=== PATIENT | male | born 1950 | race Caucasian/White ===

== ENCOUNTER → 2021-04-08 | Outpatient (CLI) | payer OTHER ==
--- NOTE | ~2021-04-08 | PF ---
[address] [address] PULMONARY FUNCTION REPORT Name: ORTIZ DAMIAN Room: [facility]#: [id number] Admission: 04/08/21 Attend Phys: Constantino Searsesperanzamolly Discharge: Date of : 50 Report #: [id number] THIS REPORT FOR: cc: [facility] - Clinic physician unknown [facility] - Clinic physician unknown Roger Swain MD ~ DATE OF VISIT: 04/08/2021 PULMONARY FUNCTION TEST The FEV1/FVC ratio is normal at 74% with an FVC normal at 96%. The FEV1 is also normal at 96%. Interestingly, the FEF 25-75 is also 96%. After the administration of a bronchodilator, there is no significant increase in any of these values. The patient's post-bronchodilator FEV1 is 4.14 liters. Only a spirometry was performed. IMPRESSION: Normal spirometry. By: [id number] Swain MD /nt
== END ==
LOC: M.PUL 11:14
PROVIDERS: ATTEND Chiropractor
DX: R06.02 Shortness of breath (principal)